=== PATIENT | female | born 1960 | race African-American/Black ===

== ENCOUNTER 2017-01-18 15:48 | Emergency (ER) | payer SELFPAY ==
[~2017-01-18] VITALS: Ht 147.3 cm; Wt 91.3 kg
[2017-01-18 21:01] VITALS: BP 176/93
== END 2017-01-18 21:03 | disposition home or self-care (01) ==
LOC: EME 15:48
DX: G43.909 Migraine, unspecified, not intractable, without status migrainosus (principal)
CPT/HCPCS: 99281; 99284; J1200; J1885; J2765; J7030